=== PATIENT | male | born 2000 | race Caucasian/White ===

== ENCOUNTER 2023-01-26 10:51 | Inpatient (IN) | payer OTHER ==
[~2023-01-26] VITALS: Ht 180.3 cm; Wt 70.5 kg
[2023-01-26 11:37] LABS: HEMATOCRIT 43.8 % (42.0-52.0); HEMOGLOBIN 15.1 g/dl (13.5-17.5); MEAN CORPUSCULAR HEMOGLOBIN 31.3 pg (27.0-33.0); MEAN CORPUSCULAR HGB CONC 34.5 g/dl (32.0-36.5); MEAN CORPUSCULAR VOLUME 90.7 fl (80.0-96.0); PLATELET COUNT, AUTOMATED 350 10^3/uL (150-450); RED BLOOD COUNT 4.83 10^6/uL (4.30-6.10); WHITE BLOOD COUNT 4.8 10^3/uL (4.0-10.0)
[2023-01-26 12:00] LABS: AMPHETAMINES LEVEL URINE NEGATIVE (NEGATIVE); BARBITURATES URINE NEGATIVE (NEGATIVE); BENZODIAZEPINES URINE NEGATIVE (NEGATIVE); CANNABINOIDS URINE NEGATIVE (NEGATIVE); COCAINE METABOLITE URINE NEGATIVE (NEGATIVE); METHADONE URINE NEGATIVE (NEGATIVE); OPIATES URINE NEGATIVE (NEGATIVE); PHENCYCLIDINE URINE NEGATIVE (NEGATIVE)
[2023-01-26 12:02] LABS: ETHYL ALCOHOL (ETHANOL) < 0.003 % (0.000-0.010)
[2023-01-26 12:04] LABS: ALBUMIN 4.3 G/DL (3.2-5.2); ALKALINE PHOSPHATASE 98 U/L (46-116); ALT/SGPT 25 U/L (7.0-40); AST/SGOT 20 U/L (<34); BILIRUBIN,DIRECT 0.2 MG/DL (<0.4); BILIRUBIN,TOTAL 0.5 MG/DL (0.3-1.2); BLOOD UREA NITROGEN 17 MG/DL (9-23); CALCIUM LEVEL 9.6 MG/DL (8.5-10.1); CARBON DIOXIDE LEVEL 29 MMOL/L (20-31); CHLORIDE LEVEL 105 MMOL/L (98-107); CREATININE FOR GFR 1.14 MG/DL (0.70-1.30); GLOMERULAR FILTRATION RATE > 60.0 (>60); GLUCOSE, FASTING 78 MG/DL (60-100); POTASSIUM SERUM 3.9 MMOL/L (3.5-5.1); SALICYLATE LEVEL < 3.0 MG/DL (<30); SODIUM LEVEL 142 MMOL/L (136-145); TOTAL PROTEIN 7.7 G/DL (5.7-8.2)
[2023-01-26 12:12] LABS: THYROID STIMULATING HORMONE 1.298 uIU/ML (0.55-4.78)
[2023-01-26] MEDS ORDERED: MED REC IN PROGRESS XX SCH (13:00)
[2023-01-26] MEDS ORDERED: HOME MED LIST COMPLETE! XX SCH (13:10)
[2023-01-26] MEDS ORDERED: diphenhydrAMINE 25MG CAP PO PRN (13:25)
[2023-01-26] MEDS ORDERED: ACETAMINOPHEN TAB 650MG DOSE (2X325MG) PO PRN (13:25)
[2023-01-26] MEDS ORDERED: MAALOX 30 ML SUSP *UDC PO PRN (13:25)
[2023-01-26] MEDS ORDERED: MOM 30ML SUSPENSION UDC PO PRN (13:25)
[2023-01-26] MEDS ORDERED: traZODone 50 MG TAB PO PRN (13:25)
[2023-01-26] MEDS ORDERED: IBUPROFEN 400MG TAB PO PRN (13:25)
[2023-01-26 14:45] VITALS: BP 144/67; TEMP 97.7; O2SAT 100
[2023-01-27] MEDS: lamoTRIgine 25MG TAB PO SCH (11:03)
[2023-01-27] MEDS: NICOTINE 21MG/24HR 1 EA TRANSDERMAL TD SCH (15:39)
[2023-01-27 16:17] VITALS: BP 124/66; TEMP 97.5; O2SAT 100
[2023-01-28 06:26] VITALS: BP 112/54; TEMP 97.8; O2SAT 98
[2023-01-28] MEDS: lamoTRIgine 25MG TAB PO SCH (09:26)
[2023-01-28] MEDS: NICOTINE 21MG/24HR 1 EA TRANSDERMAL TD SCH (09:27)
[2023-01-28 15:46] VITALS: BP 129/60; TEMP 97.5; O2SAT 97
[2023-01-28] MEDS: ARIPiprazole 2 MG TAB PO SCH (20:44)
[2023-01-29 06:00] VITALS: BP 97/52; TEMP 98.3; O2SAT 98
[2023-01-29] MEDS: NICOTINE 21MG/24HR 1 EA TRANSDERMAL TD SCH (09:06)
[2023-01-29] MEDS: lamoTRIgine 25MG TAB PO SCH (09:06)
[2023-01-29 18:30] VITALS: BP 121/74; TEMP 98.2
[2023-01-29] MEDS: ARIPiprazole 2 MG TAB PO SCH (20:04)
[2023-01-30 06:05] VITALS: BP 100/59; TEMP 98.2; O2SAT 96
[2023-01-30] MEDS: lamoTRIgine 25MG TAB PO SCH (09:14)
[2023-01-30] MEDS: NICOTINE 21MG/24HR 1 EA TRANSDERMAL TD SCH (09:15)
[2023-01-30 18:00] VITALS: BP 108/56; TEMP 97.8
[2023-01-30] MEDS: ARIPiprazole 2 MG TAB PO SCH (20:10)
[2023-01-31 06:34] VITALS: BP 115/59; TEMP 98.5; O2SAT 98
[2023-01-31] MEDS: NICOTINE 21MG/24HR 1 EA TRANSDERMAL TD SCH (09:00)
[2023-01-31] MEDS: lamoTRIgine 25MG TAB PO SCH (09:17)
[2023-01-31] MEDS ORDERED: LAMI25TA PO (10:01)
[2023-01-31] MEDS ORDERED: NICO21PAT TD (10:01)
[2023-01-31] MEDS ORDERED: ABIL1TAB13 PO (10:01)
== END 2023-01-31 12:30 | disposition home or self-care (01) | DRG 881 ==
LOC: M ED 10:51 → EDBD 10:51 → M ED INP 13:25 → M PSY 14:59
PROVIDERS: ADMIT Student in an Organized Health Care Education/Training Program; ATTEND Student in an Organized Health Care Education/Training Program
DX: F32.A Depression, unspecified (principal); R45.851 Suicidal ideations; F31.30 Bipolar disorder, current episode depressed, mild or moderate severity, unspecified; F17.200 Nicotine dependence, unspecified, uncomplicated; F10.10 Alcohol abuse, uncomplicated; F43.10 Post-traumatic stress disorder, unspecified; F41.9 Anxiety disorder, unspecified; G47.00 Insomnia, unspecified